=== PATIENT | female | born 1980 | race Caucasian/White ===

== ENCOUNTER 2019-01-15 14:44 | Emergency (ER) | payer OTHER ==
[2019-01-15 15:26] VITALS: BP 139/88
--- NOTE | 2019-01-15 15:53 | ED ---
Upper Extremity Pain - HPI Summary HPI Summary: 38 yr old female with the complaint of left shoulder pain. Onset of symptoms over the past week. She was carrying a heavy suitcase up a flight of stairs a week ago, and little by little has had pain in the left shoulder, left medial scapula, and lateral left shoulder, left AC joint area. She states that a year ago she injured the same shoulder but it got better after time. No focal weakness in hand. Pain is moderate. - History of Current Complaint Chief Complaint: UCUpperExtremity Stated Complaint: LEFT SHOULDER INJURY Time Seen by Provider: 01/15/19 15:30 Hx Last Menstrual Period: 01/10/19 - Allergies/Home Medications Allergies/Adverse Reactions: Allergies Allergy/AdvReac Type Severity Reaction Status Date / Time No Known Allergies Allergy Verified 01/15/19 15:26 Home Medications: Home Medications Ibuprofen TAB* [Motrin TAB* 800 MG] 800 mg PO Q6H 01/15/19 [History Confirmed ] Multivit-Min/Iron/Folic Acid/K [Multi For Her Softgel] 1 each PO DAILY 01/15/19 [History Confirmed 01/15/19] Quetiapine Fumarate [Seroquel 300 MG] 300 mg PO BEDTIME 01/15/19 [History Confirmed 01/15/19] lamoTRIgine [Lamictal] 100 mg PO DAILY 01/15/19 [History Confirmed 01/15/19] PMH/Surg Hx/FS Hx/Imm Hx - Surgical History Surgery Procedure, Year, and Place: Gastric bypass 2005. Gall bladder. bowel obstruction surgery Infectious Disease History: No Infectious Disease History: Denies: Traveled Outside the [place] in Last 30 Days - Family History Known Family History: Positive: None - Social History Alcohol Use: None Substance Use Type: Reports: None Smoking Status (MU): Heavy Every Day Tobacco Smoker Review of Systems Constitutional: Negative Positive: Other - left shoulder pain All Other Systems Reviewed And Are Negative: Yes Physical Exam Triage Information Reviewed: Yes Vital Signs On Initial Exam: Initial Vitals Temp Pulse Resp BP Pulse Ox 98.1 F 73 16 139/88 100 01/15/19 15:21 01/15/19 15:21 01/15/19 15:21 01/15/19 15:21 01/15/19 15:21 Vital Signs Reviewed: Yes Appearance: Positive: Well-Appearing, No Pain Distress Skin: Positive: Warm, Skin Color Reflects Adequate Perfusion Head/Face: Positive: Normal Head/Face Inspection Eyes: Positive: EOMI ENT: Positive: Normal ENT inspection Respiratory/Lung Sounds: Positive: Clear to Auscultation, Breath Sounds Present Cardiovascular: Positive: RRR. Negative: Murmur Abdomen Description: Negative: Distended Musculoskeletal: Positive: Other - left shoulder diffuse tender. No redness, no swelling, no bruise. She has limited ROM on anterior flexion and on abduction. Neurological: Positive: Sensory/Motor Intact, Alert, Oriented to Person Place, Time, CN Intact II-III, Normal Gait, Speech Normal Psychiatric: Positive: Normal Diagnostics - Vital Signs Vital Signs Temp Pulse Resp BP Pulse Ox 01/15/19 15:21 98.1 F 73 16 139/88 100 - Laboratory Lab Statement: Any lab studies that have been ordered have been reviewed, and results considered in the medical decision making process. - Radiology left shoulder Radiology Interpretation Completed By: Radiologist - arthritis Course/Dx - Course Course Of Treatment: 38 yr old with arthritis on xray shoulder. Referral to ortho. Tylenol., sling - Diagnoses Provider Diagnoses: DJD of left shoulder, Hypertension Discharge - Sign-Out/Discharge Documenting (check all that apply): Patient Departure All imaging exams completed and their final reports reviewed: Yes - Discharge Plan Condition: Good Disposition: HOME Patient Education Materials: Arthritis (ED), Rotator Cuff Injury (ED) Referrals: Jeffrey Coaets NP [Primary Care Provider] - 5 Days - Billing Disposition and Condition Condition: GOOD Disposition: Home
== END 2019-01-15 16:34 | disposition home or self-care (01) ==
LOC: UCCORT 14:44
DX: M19.012 Primary osteoarthritis, left shoulder (principal); F17.200 Nicotine dependence, unspecified, uncomplicated
CPT/HCPCS: 99202; G0463